=== PATIENT | male | born 1945 | race Caucasian/White ===

== ENCOUNTER 2019-09-04 06:29 | Observation (INO) | payer MEDICARE ==
[~2019-09-04] VITALS: Ht 185.4 cm; Wt 91.7 kg
[~2019-09-04 06:29] MED LIST: ETOD400T PO; HYDR200T72 PO; HYDROCHLOROTH12.5 MG PO; LISI-170 PO
[2019-09-04] MEDS ORDERED: BUPIVACAINE/PF-EPI 0.25% 1:200K ONE (06:38)
[2019-09-04] MEDS ORDERED: BACITRACIN 50,000 UNIT ONE (06:38)
[2019-09-04] MEDS ORDERED: LACTATED RINGERS 1,000 ML IV SCH (07:48)
[2019-09-04 07:50] VITALS: BP 154/77
[2019-09-04] MEDS ORDERED: CHLORHEXIDINE 15 ML UDC ONE (07:55)
[2019-09-04] MEDS ORDERED: CHLORHEXIDINE 15 ML UDC MM ONE (08:00)
[2019-09-04] MEDS ORDERED: FENTANYL PF 250 MCG/5ML ONE (08:33)
[2019-09-04] MEDS ORDERED: ROCURONIUM 10 MG/ML,10ML ONE (09:15)
[2019-09-04] MEDS ORDERED: SUCCINYLCHOLINE 20 MG/ML, 10ML ONE (09:15)
[2019-09-04] MEDS ORDERED: LIDOCAINE PF 2%, 5ML ONE (09:15)
[2019-09-04] MEDS ORDERED: OXYcodone 5 MG/5 ML ORAL.SOL UDC PO PRN (10:00)
[2019-09-04] MEDS ORDERED: LABETALOL 5MG/ML, 20ML IV PRN (10:00)
[2019-09-04] MEDS ORDERED: PROMETHAZINE 25 MG/ML, 1ML IVPush PRN (10:00)
[2019-09-04] MEDS ORDERED: GABAPENTIN 300 MG CAPSULE PO PRN (10:00)
[2019-09-04] MEDS ORDERED: ACETAMINOPHEN 325 MG TABLET PO PRN (10:00)
[2019-09-04] MEDS ORDERED: MIDAZOLAM 1 MG/ML, 2ML IV PRN (10:00)
[2019-09-04] MEDS ORDERED: METHOCARBAMOL 1,000 MG in DEXTROSE 5% 100 ML IV PRN (10:00)
[2019-09-04] MEDS ORDERED: ALBUTEROL SULFATE 2.5 MG/3 ML NPPB PRN (10:00)
[2019-09-04] MEDS ORDERED: MEPERIDINE/PF 25MG/0.5ML IVPush PRN (10:00)
[2019-09-04] MEDS ORDERED: hydrALAzine 20 MG/ML, 1ML IV PRN (10:00)
[2019-09-04] MEDS ORDERED: HYDROmorphone 1 MG/ML, 1ML INJ IVPush PRN ×2 (10:00→11:00)
[2019-09-04] MEDS ORDERED: PROPOFOL 10 MG/ML, 20ML ONE (10:51)
[2019-09-04] MEDS ORDERED: CEFAZOLIN 1,000 MG ONE (10:51)
[2019-09-04] MEDS ORDERED: DEXAMETHASONE 4 MG/ML, 1ML ONE (10:51)
[2019-09-04] MEDS ORDERED: ONDANSETRON 2MG/ML, 2ML ONE (10:51)
[2019-09-04] MEDS ORDERED: OXYcodone/APAP 10/325MG TABLET PO PRN (11:00)
[2019-09-04] MEDS ORDERED: TIZANIDINE 2MG TABLET PO PRN (11:00)
[2019-09-04] MEDS ORDERED: HYDROmorphone PCA 30 MG/30 ML IV PRN (11:00)
[2019-09-04] MEDS ORDERED: MEPERIDINE/PF 100 MG/ML IM PRN (11:00)
[2019-09-04] MEDS ORDERED: DIPHENHYDRAMINE 50 MG/ML, 1ML IVPush PRN (11:00)
[2019-09-04] MEDS ORDERED: ONDANSETRON 2MG/ML, 2ML IVPush PRN (11:00)
[2019-09-04] MEDS ORDERED: HYDROcodone/APAP 10/325 MG TABLET PO PRN (11:00)
[2019-09-04] MEDS ORDERED: BISACODYL 10 MG SUPP PR PRN (11:00)
[2019-09-04] MEDS ORDERED: DIAZEPAM 5 MG TABLET PO PRN (11:00)
[2019-09-04] MEDS ORDERED: METHOCARBAMOL 1,000 MG in DEXTROSE 5% 100 ML IV ONE (11:00)
[2019-09-04] MEDS ORDERED: MAGNESIUM HYDROXIDE 8%, 30ML UDC PO PRN (11:00)
[2019-09-04] MEDS ORDERED: PROMETHAZINE 25 MG/ML, 1ML IM PRN (11:00)
[2019-09-04] MEDS ORDERED: PHARMACY MAY ADJ FOR RENAL FX MC PRN (11:00)
[2019-09-04] MEDS ORDERED: VANCOMYCIN 1,000 MG ONE (11:12)
[2019-09-04] MEDS ORDERED: FENTANYL PF 100 MCG/2ML ONE (11:16)
[2019-09-04] MEDS ORDERED: OXYcodone 5 MG/5 ML ORAL.SOL UDC ONE (11:16)
[2019-09-04] MEDS: FENTANYL PF 100 MCG/2ML IV PRN ×2 (11:21→11:30)
[2019-09-04] MEDS ORDERED: DIAZEPAM 5 MG/ML, 2ML ONE (12:10)
[2019-09-04] MEDS ORDERED: DIAZEPAM 5 MG/ML, 2ML IV ONE (12:30)
[2019-09-04 13:57] VITALS: BP 127/73
[2019-09-04 15:06] VITALS: BP 143/78
[2019-09-04] MEDS: NS + 20MEQ KCL 1,000 ML IV SCH (15:17)
[2019-09-04] MEDS: LISINOPRIL 20 MG TABLET PO SCH (16:29)
[2019-09-04] MEDS: HYDROCHLOROTHIAZIDE 12.5 MG CAPSULE PO SCH (16:29)
[2019-09-04] MEDS: HYDROXYCHLOROQUINE 200 MG TABLET PO SCH (16:51)
[2019-09-04] MEDS: CEFAZOLIN PMX 1GM/50ML 50 ML IVPB SCH (18:36)
[2019-09-04 20:07] VITALS: BP 116/70
[2019-09-04] MEDS: SODIUM CHLORIDE FLUSH 10ML SYR IVF SCH (20:32)
[2019-09-04 23:20] VITALS: BP 104/61
[2019-09-05] MEDS: NS + 20MEQ KCL 1,000 ML IV SCH ×3 (01:00→22:00)
[2019-09-05] MEDS: CEFAZOLIN PMX 1GM/50ML 50 ML IVPB SCH (02:38)
[2019-09-05 03:09] VITALS: BP 138/72
[2019-09-05 07:54] VITALS: BP 118/62
[2019-09-05] MEDS: SENNA/DOCUSATE TABLET PO SCH (08:33)
[2019-09-05] MEDS: HYDROXYCHLOROQUINE 200 MG TABLET PO SCH (08:33)
[2019-09-05] MEDS: HYDROCHLOROTHIAZIDE 12.5 MG CAPSULE PO SCH (08:33)
[2019-09-05] MEDS: LISINOPRIL 20 MG TABLET PO SCH (08:33)
[2019-09-05] MEDS: SODIUM CHLORIDE FLUSH 10ML SYR IVF SCH ×2 (08:34→20:48)
[2019-09-05] MEDS ORDERED: LISINOPRIL 20 MG TABLET PO SCH (09:00)
[2019-09-05] MEDS ORDERED: HYDROCHLOROTHIAZIDE 12.5 MG CAPSULE PO SCH (09:00)
[2019-09-05] MEDS ORDERED: HYDROXYCHLOROQUINE 200 MG TABLET PO SCH (09:00)
[2019-09-05] MEDS ORDERED: TIZANIDINE 4MG TABLET PO PRN (09:00)
[2019-09-05 12:18] VITALS: BP 132/56
[2019-09-05 19:46] VITALS: BP 131/58
[2019-09-05] MEDS: OXYcodone/APAP 5/325MG TABLET PO PRN (20:48)
[2019-09-06 00:24] VITALS: BP 130/74
[2019-09-06] MEDS: OXYcodone/APAP 5/325MG TABLET PO PRN ×3 (00:30→10:08)
[2019-09-06 07:45] VITALS: BP 129/61
[2019-09-06] MEDS: NS + 20MEQ KCL 1,000 ML IV SCH (08:00)
[2019-09-06] MEDS: HYDROXYCHLOROQUINE 200 MG TABLET PO SCH (09:00)
[2019-09-06] MEDS: SODIUM CHLORIDE FLUSH 10ML SYR IVF SCH (09:00)
[2019-09-06] MEDS: SENNA/DOCUSATE TABLET PO SCH (10:07)
[2019-09-06 10:08] VITALS: BP 144/73
[2019-09-06] MEDS: HYDROCHLOROTHIAZIDE 12.5 MG CAPSULE PO SCH (10:08)
[2019-09-06] MEDS: LISINOPRIL 20 MG TABLET PO SCH (10:08)
[2019-09-06] MEDS ORDERED: OXYC-302 PO (11:06)
[2019-09-06] MEDS ORDERED: TIZA4TAB9 PO (11:07)
== END 2019-09-06 11:25 | disposition home or self-care (01) ==
LOC: OUT 06:29 → ORIP 10:59 → 4NE 13:12 → DCLOUNGE 09-06 11:12
PROVIDERS: ADMIT Neurological Surgery; ATTEND Neurological Surgery
DX: Z03.818 Encounter for observation for suspected exposure to other biological agents ruled out (principal); M48.062 Spinal stenosis, lumbar region with neurogenic claudication; M47.812 Spondylosis without myelopathy or radiculopathy, cervical region; M06.9 Rheumatoid arthritis, unspecified; I10 Essential (primary) hypertension; Z79.899 Other long term (current) drug therapy; Z87.891 Personal history of nicotine dependence
CPT/HCPCS: 36415; 63047; 63048; 72100; 87635; 96365; 96366; 97161; 97166; G0378; J0330; J0690; J1100; J1170; J2405; J2704; J2800; J3010; J3360; J3370; J3480; J7120